=== PATIENT | male | born 1955 | race Caucasian/White ===

== ENCOUNTER → 2017-06-26 | Outpatient (CLI) | payer OTHER ==
[2013-09-18 11:01] VITALS: BP 128/84
[2017-06-26 18:25] LABS: BILIRUBIN,URINE NEGATIVE (NEGATIVE); BLOOD/HEMOGLOBIN,URINE 1+ (NEGATIVE); GLUCOSE, URINE NEGATIVE (NEGATIVE); KETONES,URINE NEGATIVE (NEGATIVE); LEUKOCYTE ESTERASE ,URINE 2+ (NEGATIVE); NITRITES,URINE NEGATIVE (NEGATIVE); PROTEIN,URINE 1+ (NEGATIVE); UROBILINOGEN,URINE 1+ (NORMAL)
[2017-06-26 18:51] LABS: APPEARANCE,URINE SLIGHTLY HAZY (CLEAR); BACTERIA,URINE 1+ /HPF (NEGATIVE); COLOR,URINE YELLOW (YELLOW); SQUAMOUS EPITHELIAL CELL,UR FEW /HPF (NEGATIVE)
--- NOTE | 2017-06-27 19:06 | RAD ---
HISTORY: Left shoulder pain with limited range of motion Study: Three views the left shoulder Comparison: None Findings: Images demonstrate moderate degenerative changes of the humeral head and glenoid including subchondra l sclerosis, cyst formation, and spurring. The glenohumeral articulation is relatively maintained. De generative changes of the acromioclavicular joint are noted as well. IMPRESSION: 1. Moderate degenerative changes as noted above. Reported By:
== END | disposition home or self-care (01) | DRG 696 ==
LOC: LAB 17:56
PROVIDERS: ATTEND Psychiatry & Neurology Neurology
DX: R80.8 Other proteinuria (principal); M25.512 Pain in left shoulder; M19.012 Primary osteoarthritis, left shoulder
CPT/HCPCS: 73030; 81001; 87086